=== PATIENT | male | born 1990 | race Hispanic/Latino ===

== ENCOUNTER 2022-03-09 11:22 | Outpatient (CLI) | payer BC | END 2022-03-09 11:23 | disposition home or self-care (01) | LOC: DTY/OP 11:22 | PROVIDERS: ATTEND Surgery | DX: E66.01 Morbid (severe) obesity due to excess calories (principal) | CPT/HCPCS: 97802 ==

== ENCOUNTER 2022-06-14 17:31 | Outpatient (CLI) | payer BC ==
[2022-06-14 18:15] LABS: #Basophils 0.1 10x3/uL (0.0-0.2); #Eosinphils 0.2 10x3/uL (0.0-0.5); #Monocytes 0.6 10x3/uL (0.0-1.1); %Basophils 0.7 % (0.0-2.0); %Eosinophils 1.9 % (0.0-6.0); %Lymphocytes 43.5 % (18.0-47.0); %Monocytes 6.8 % (0.0-10.0); Hemoglobin 14.3 g/dL (13.5-17.5); Mean Corpuscular HGB CONC 34.1 g/dL (32.0-36.0); Mean Corpuscular Hemoglobin 28.4 pg (27.0-33.0); Mean Corpuscular Volume 83.1 fl (81.2-95.1); Mean Platelet Volume 10.3 fl (7.4-10.4); Platelet Count 284 10x3/uL (150-450); RBC Distribution Width 12.9 % (11.5-14.5); Red Blood Cell (RBC) Count 5.04 10x6/uL (4.32-5.72); White Blood Cell (WBC) Count 8.6 10x3/uL (3.5-10.5)
[2022-06-14 18:24] LABS: ALT (SGPT) 55 U/L (8-55); AST (SGOT) 36 U/L (5-34); Albumin 4.7 g/dL (3.5-5.0); Alkaline Phosphatase 61 U/L (40-110); Anion Gap 14 mmol/L (10-20); BUN (Urea Nitrogen) 11 mg/dL (8.9-20.6); Bilirubin, Total 0.5 mg/dL (0.2-1.2); Calc. Creatinine Clearance 0 mL/min (70-130); Calcium 9.4 mg/dL (7.8-10.44); Carbon Dioxide 26 mmol/L (22-29); Chloride 102 mmol/L (98-107); Estimated GFR 122; Glucose 97 mg/dL (70-105); Potassium 3.5 mmol/L (3.5-5.1); Protein, Total 7.7 g/dL (6.0-8.3); Sodium 138 mmol/L (136-145)
[2022-06-14 22:01] LABS: Hemoglobin A1c 5.4 % (4.0-6.0)
== END 2022-06-14 17:32 | disposition home or self-care (01) ==
LOC: LABBT 17:31
PROVIDERS: ATTEND Surgery
DX: Z01.818 Encounter for other preprocedural examination (principal); E66.01 Morbid (severe) obesity due to excess calories
CPT/HCPCS: 71046; 80053; 83036; 85025; 93005; 93010

== ENCOUNTER 2022-06-14 18:00 | Inpatient (IN) | payer BC ==
[2022-06-20 15:57] VITALS: BMI 42.3
[2022-06-21] MEDS ORDERED: Fentanyl 250 MCG/5 ML VIAL ONE (06:33)
[2022-06-21] MEDS ORDERED: Lidocaine 2% 6 ML SYR ONE (06:33)
[2022-06-21] MEDS ORDERED: Dexmedetomidine 200 MCG/2 ML VIAL ONE (06:33)
[2022-06-21] MEDS ORDERED: SUGAMMADEX SODIUM 200 MG/2 ML VIAL ONE (06:33)
[2022-06-21] MEDS ORDERED: Bupivacaine/Epinephrine 0.25% 30 ML VIAL ONE (06:45)
[2022-06-21] MEDS ORDERED: Sodium Chloride 0.9% 100 ML ONE (06:57)
[2022-06-21] MEDS ORDERED: Lidocaine 1% MPF 2 ML VIAL ONE (06:57)
[2022-06-21] MEDS ORDERED: CEFAZOLIN 2 GM VIAL ONE (06:57)
[2022-06-21] MEDS ORDERED: Heparin 5,000 UNITS/ML VIAL ONE (07:23)
[2022-06-21] MEDS ORDERED: NEOSTIGMINE 3 MG/3 ML SYR 3 MG/3 ML SYRINGE ONE (07:45)
[2022-06-21] MEDS ORDERED: Ketorolac Tromethamine 30 MG/ML VIAL ONE (07:45)
[2022-06-21] MEDS ORDERED: Ondansetron PF 4 MG/2 ML Vial ONE (07:45)
[2022-06-21] MEDS ORDERED: Rocuronium Bromide 10 MG/ML (10ML VIAL) ONE (07:45)
[2022-06-21] MEDS ORDERED: PROPOFOL 200 MG/20 ML VIAL ONE (07:45)
[2022-06-21] MEDS ORDERED: Glycopyrrolate 0.2 MG/ML 5 ML SYRINGE ONE (07:45)
[2022-06-21] MEDS ORDERED: Dexamethasone 20 MG/5 ML VIAL ONE (07:45)
[2022-06-21] MEDS ORDERED: Lidocaine 1% PF 5 ML VIAL ONE (07:45)
[2022-06-21 07:54] LABS: SARS-CoV-2 NAA Rapid Test Not Detected (NotDetected)
[2022-06-21] MEDS ORDERED: Dextrose 50% Abboject 50 ML SYRINGE SLOW IVP PRN (09:05)
[2022-06-21] MEDS ORDERED: Hydrocodone-Acetamin 15 ML UDCUP PO PRN (09:05)
[2022-06-21] MEDS ORDERED: Dextrose 5% in Water 1,000 ML IV PRN (09:05)
[2022-06-21] MEDS ORDERED: hydrALAZINE 20 MG/ML VIAL SLOW IVP PRN (09:05)
[2022-06-21] MEDS ORDERED: diphenhydrAMINE 50 MG/ML VIAL IVP PRN ×3 (09:05→09:35)
[2022-06-21] MEDS ORDERED: Promethazine HCl 25 MG/ML VIAL IM PRN ×3 (09:05→09:35)
[2022-06-21] MEDS ORDERED: Ondansetron PF 4 MG/2 ML Vial IVP PRN ×3 (09:05→09:35)
[2022-06-21] MEDS ORDERED: diphenhydrAMINE 25 MG CAP PO PRN ×2 (09:07→09:35)
[2022-06-21] MEDS ORDERED: FENTANYL 500 MCG/10 ML VIAL 2,000 MCG in Sodium Chloride 0.9% 60 ML IV PRN ×2 (09:07→09:36)
[2022-06-21] MEDS ORDERED: Naloxone HCl 0.4 mg/ml Vial IV PRN ×2 (09:07→09:35)
[2022-06-21] MEDS ORDERED: diphenhydrAMINE 50 MG/ML VIAL IM PRN ×2 (09:07→09:35)
[2022-06-21] MEDS ORDERED: Zolpidem Tartrate 5 MG TAB PO PRN ×2 (09:07→09:35)
[2022-06-21] MEDS ORDERED: Ketorolac Tromethamine 30 MG/ML VIAL IVP PRN (09:08)
[2022-06-21] MEDS ORDERED: Communication Order-Pharmacy FS SCH ×2 (09:15→09:45)
[2022-06-21] MEDS ORDERED: Morphine CADD 1 MG/ML CADD IVPB PRN (09:35)
[2022-06-21] MEDS ORDERED: D5 1/2 NS w/20 mEq KCL 1,000 ML ONE (09:40)
[2022-06-21] MEDS: D5 1/2 NS w/20 mEq KCL 1,000 ML IV SCH ×2 (11:09→17:10)
[2022-06-21] MEDS ORDERED: FLU VACC QS2022-23(6MOS UP)/PF 60 MCG/0.5 ML SYRINGE IM ONE (12:00)
[2022-06-22] MEDS: D5 1/2 NS w/20 mEq KCL 1,000 ML IV SCH ×2 (02:30→08:48)
[2022-06-22 05:32] LABS: #Lymphocytes 1.5 thou/uL (1.20-3.40); #Monocytes 0.8 thou/uL (0.11-0.59); #Neutrophils 9.3 thou/uL (1.40-6.50); %Basophils 0.1 % (0.0-1.0); %Lymphocytes 12.9 % (21.0-51.0); %Monocytes 6.8 % (0.0-10.0); %Neutrophils 80.2 % (42.0-75.0); Hemoglobin 13.8 g/dL (14.0-18.0); Mean Corpuscular HGB CONC 33.1 g/dL (32.0-36.0); Mean Corpuscular Hemoglobin 28.9 pg (27.0-31.0); Mean Corpuscular Volume 87.3 fl (78.0-98.0); Mean Platelet Volume 8.2 fL (7.4-10.4); Platelet Count 211 10x3/uL (130-400); RBC Distribution Width 12.3 % (11.5-14.5); Red Blood Cell (RBC) Count 4.77 mill/uL (4.70-6.10); White Blood Cell (WBC) Count 11.6 10x3/uL (4.8-10.8)
[2022-06-22 05:53] LABS: Anion Gap 13 mmol/L (10-20); BUN (Urea Nitrogen) 8 mg/dL (8.9-20.6); Calc. Creatinine Clearance 286 mL/min (70-130); Calcium 8.6 mg/dL (7.8-10.44); Carbon Dioxide 24 mmol/L (22-29); Chloride 104 mmol/L (98-107); Estimated GFR 123; Glucose 125 mg/dL (70-105); Potassium 3.8 mmol/L (3.5-5.1); Sodium 137 mmol/L (136-145)
[2022-06-22] MEDS ORDERED: Enoxaparin Sodium 40 MG/0.4 ML SYRINGE SC SCH (09:00)
[2022-06-22] MEDS ORDERED: Pantoprazole 40 MG VIAL IVP SCH (09:00)
[2022-06-22 11:52] VITALS: BP 152/100; TEMP 97.9
== END 2022-06-22 12:18 | disposition home or self-care (01) | DRG 621 ==
LOC: SURG A 06-21 05:53
PROVIDERS: ADMIT Surgery; ATTEND Surgery
PROC: 0DB64Z3 Excision of Stomach, Percutaneous Endoscopic Approach, Vertical (ICD-10-PCS; principal; 2022-06-21)
PROC: 8E0W4CZ Robotic Assisted Procedure of Trunk Region, Percutaneous Endoscopic Approach (ICD-10-PCS; 2022-06-21)
DX: E66.01 Morbid (severe) obesity due to excess calories (principal); K21.9 Gastro-esophageal reflux disease without esophagitis; F41.9 Anxiety disorder, unspecified; E78.00 Pure hypercholesterolemia, unspecified; Z20.822 Contact with and (suspected) exposure to COVID-19; Z68.41 Body mass index [BMI] 40.0-44.9, adult
CPT/HCPCS: 36415; 80048; 85025; 88307; 90471; 90686; C9113; G0008; J1100; J1644; J1650; J1885; J2405; J2704; J3010; J3480; J3490; U0002